=== PATIENT | female | born 1955 | race Caucasian/White ===

== ENCOUNTER 2021-04-01 10:09 | Outpatient (REF) | payer MEDICARE, OTHER, SELFPAY ==
[2021-04-01 11:32] LABS: MANUAL DIFF FLAG NO
[2021-04-01 11:49] LABS: Basophils Percent Auto 0.4 % (0-2); Eosinophils Absolute Auto 0.2 X10*3/uL (0.0-0.4); Eosinophils Percent Auto 3.2 % (0-4); Hematocrit 33.6 % (37-47); Hemoglobin 10.9 g/dl (12.0-16.0); Imm Gran Abs Auto 0.01 X10*3/uL (0.00-0.03); Imm Gran Pct Auto 0.2 % (0.0-0.4); Lymphocytes Absolute Auto 1.9 X10*3/uL (1.2-4.9); Lymphocytes Percent Auto 35.6 % (20-40); Mean Corpuscular HGB Conc 32.4 g/dl (31.0-35.0); Mean Corpuscular Hemoglobin 28.1 pg (27.0-33.0); Mean Corpuscular Volume 86.6 fL (80-98); Mean Platelet Volume 11.9 fL (9.4-12.3); Monocytes Absolute Auto 0.5 X10*3/uL (0.1-1.2); Monocytes Percent Auto 8.6 % (2-11); Neutrophils Absolute Auto 2.7 X10*3/uL (2.0-8.3); Platelet Count 151 X10*3/uL (160-400); Red Blood Count 3.88 X10*6/uL (4.20-5.50); Red Cell Distribution Width 12.7 % (11.0-16.0); White Blood Count 5.3 X10*3/uL (4.8-10.8)
[2021-04-01 11:57] LABS: Alanine Aminotransferase 27 U/L (0-31); Albumin Level 4.1 g/dL (3.5-5.0); Alkaline Phosphatase 79 U/L (39-117); Anion Gap 12 (12-20); Aspartate Amino Transferase 21 U/L (5-31); Bilirubin Total 0.6 mg/dL (0.0-1.0); Blood Urea Nitrogen 20 mg/dL (9-16); Carbon Dioxide 25 mmol/L (22-29); Chloride 107 mmol/L (96-108); Estimated Glomerular Filt Rate > 60; Glucose Fasting 97 mg/dL (60-99); Potassium 4.2 mmol/L (3.3-5.1); Sodium 140 mmol/L (135-145); Total Protein 6.7 g/dL (6.5-8.0)
== END 2021-04-01 10:10 | disposition home or self-care (01) ==
LOC: HO.LAB 10:09
PROVIDERS: PCP Internal Medicine; Visit Provider Nurse Practitioner Psychiatric/Mental Health
DX: F25.9 Schizoaffective disorder, unspecified (principal)
CPT/HCPCS: 36415; 80053; 82947; 85025

== ENCOUNTER → 2021-06-17 10:07 | Outpatient (BNVA) | payer MEDICARE, MEDICAID, SELFPAY | PROVIDERS: PCP Internal Medicine; Visit Provider Obstetrics & Gynecology | DX: N95.0 Postmenopausal bleeding (principal) | CPT/HCPCS: 99212 ==

== ENCOUNTER 2021-08-11 13:07 | Outpatient (REF) | payer MEDICARE, MEDICAID, SELFPAY ==
--- NOTE | ~2021-08-11 | XR_ITS ---
EXAMINATION: XR KNEE, LEFT CLINICAL INFORMATION: Pain COMPARISON: None TECHNIQUE: Four views of the left knee. FINDINGS: Bone alignment is normal. No fracture or dislocation is seen. The joint spaces are normal. There is a small osteophyte at the quadriceps tendon insertion to the patella. There is no joint effusion. XR/XR knee LT 4V IMPRESSION: Small patellar osteophyte at the quadriceps tendon insertion.
== END 2021-08-11 13:08 | disposition home or self-care (01) ==
LOC: HO.XRAY 13:07
PROVIDERS: PCP Internal Medicine; Visit Provider Internal Medicine
DX: M25.562 Pain in left knee (principal)
CPT/HCPCS: 73564

== ENCOUNTER 2022-06-11 14:39 | Outpatient (REF) | payer MEDICARE, MEDICAID, SELFPAY ==
--- NOTE | ~2022-06-11 | MM_ITS ---
EXAMINATION: BONE DENSITOMETRY CLINICAL INDICATION: Asymptomatic menopausal state. COMPARISON: Baseline BD dated 02/24/2019. TECHNIQUE: Using a P2P-Next DXA System (software version: 13.1) manufactured by [employer], dual-energy x-ray absorptiometry was performed of the lumbar spine and left hip. The images are of good technical quality. Summary results are attached. FINDINGS: AP SPINE L1-L4: Current: BMD 1.280 g/cm2, Z-score 1.6, T-score 0.8, normal, 0.9% increase from baseline (<5% change is not significant). Baseline: BMD 1.269 g/cm2. LEFT FEMUR, NECK: Current: BMD 0.943 g/cm2, Z-score 0.4, T-score -0.7, normal. Baseline: BMD 0.951 g/cm2. LEFT FEMUR, TOTAL: Current: BMD 1.022 g/cm2, Z-score 0.9, T-score 0.1, normal, 1.0% decrease from baseline (<5% change is not significant). Baseline: BMD 1.032 g/cm2. IDENTIFIED RISK FACTORS: Menopause. HISTORY OF FRACTURE: None listed. MEDICATIONS: Calcium supplements or multivitamin, vitamin D. MM/XR DEXA axial skeleton IMPRESSION: 1. DIAGNOSIS: Normal bone density based on the lowest T-score value of -0.7 in the femoral neck applying World Health Organization criteria. 2. 10-YEAR FRACTURE RISK PREDICTION, FRAX: According to the guidelines, FRAX calculation should only be performed on patients in the osteopenia bone density category. Therefore, FRAX was not performed on this patient. 3. Treatment Recommendations: NOF guidelines recommend consideration for treatment in postmenopausal women and men age 50 and older presenting with the following: -A hip or vertebral (clinical or morphometric) fracture. -T-score less than or equal to -2.5 at the femoral neck or spine after appropriate evaluation to exclude secondary causes. -Low bone mass at the hip or spine and a 10-year fracture probability by FRAX of greater than or equal to 3% for hip fracture or greater than or equal to 20% for major osteoporotic fracture based on the [place] adapted WHO algorithm. 4. Other Recommendations: All treatment decisions require clinical judgment and consideration of individual patient factors, including patient preferences, comorbidities, previous drug use, risk factors not captured in the FRAX model (e.g. frailty, falls, vitamin D deficiency, increased bone turnover, interval significant decline in bone density) and possible under or overestimation of fracture risk by FRAX. FUTURE SCAN RECOMMENDATION: People with diagnosed cases of osteoporosis or at high risk for fracture should have regular bone mineral density tests. For patients eligible for Medicare, routine testing is allowed once every 2 years. The testing frequency can be increased to one year for patients who have rapidly progressing disease, those who are receiving or discontinuing medical therapy to restore bone mass, or have additional risk factors.
== END 2022-06-11 14:40 | disposition home or self-care (01) ==
LOC: HO.MAMMO 14:39
PROVIDERS: PCP Internal Medicine; Visit Provider Internal Medicine
DX: Z13.820 Encounter for screening for osteoporosis (principal); Z78.0 Asymptomatic menopausal state
CPT/HCPCS: 77080

== ENCOUNTER 2023-12-02 14:18 | Outpatient (REF) | payer MEDICARE, MEDICAID, SELFPAY ==
[2023-12-02 18:25] LABS: Alanine Aminotransferase 29 U/L (0-31); Albumin Level 4.1 g/dL (3.5-5.0); Alkaline Phosphatase 76 U/L (39-117); Anion Gap 11 (12-20); Aspartate Amino Transferase 21 U/L (5-31); Bilirubin Total 0.3 mg/dL (0.0-1.0); Blood Urea Nitrogen 27 mg/dL (9-16); Calcium 9.7 mg/dL (8.4-10.2); Carbon Dioxide 26 mmol/L (22-29); Chloride 106 mmol/L (96-108); Cholesterol 158 mg/dL (<200); Glucose Random 138 mg/dL (60-115); HDL Cholesterol 40 mg/dL (>40); LDL Cholesterol Calculated 81 mg/dL (<100); Potassium 4.1 mmol/L (3.3-5.1); Sodium 139 mmol/L (135-145); Total Protein 6.7 g/dL (6.5-8.0); Triglycerides 186 mg/dL (<150)
[2023-12-02 19:14] LABS: Estimated Glomerular Filt Rate 54
== END 2023-12-02 14:19 | disposition home or self-care (01) ==
LOC: HO.CHCLDS 14:18
PROVIDERS: Visit Provider Internal Medicine
DX: I10 Essential (primary) hypertension (principal)
CPT/HCPCS: 36415; 80053; 80061

== ENCOUNTER 2024-05-18 13:28 | Outpatient (REF) | payer MEDICARE, MEDICAID, SELFPAY ==
--- NOTE | ~2024-05-18 | XR_ITS ---
EXAMINATION: XR CHEST CLINICAL INFORMATION: Right-sided rib/flank pain COMPARISON: Frontal view 07/02/16 TECHNIQUE: 2 views of the chest were obtained. FINDINGS: There is kyphosis and rotation to the right. Some prominence in the region of the main pulmonary outflow. Cardiac size is within normal limits. The central vessels are prominent but distinct. No edema, consolidation, pleural fluid or pneumothorax. There are osteophytes in the spine. XR/XR chest 2V IMPRESSION: 1. No pneumonia or edema. 2. There is some prominence in the region of the main pulmonary outflow. Electronically signed by: Wood Meehan MD 05/21/2024 09:31 PM EDT
== END 2024-05-18 13:29 | disposition home or self-care (01) ==
LOC: HO.HMGCX 13:28
PROVIDERS: PCP Internal Medicine; Visit Provider Internal Medicine
DX: R07.81 Pleurodynia (principal)
CPT/HCPCS: 71046

== ENCOUNTER 2024-12-20 13:45 | Outpatient (REF) | payer MEDICARE, MEDICAID, SELFPAY ==
--- NOTE | ~2024-12-20 | XR_ITS ---
EXAMINATION: XR KNEE, LEFT CLINICAL INFORMATION: knee pain after fall 2 weeks ago COMPARISON: 08/11/2021. TECHNIQUE: Three views of the left knee. FINDINGS: No fracture, dislocation, or suspicious bone lesion. Normal bone mineralization. Normal alignment. Mild tricompartmental joint space narrowing with subtle marginal osteophytic spurs. Minimal spurring of the tibial spines. Tiny superior patellar enthesophyte. No significant joint effusion. Soft tissues appear normal. XR/XR knee LT 3V IMPRESSION: 1. No acute findings left knee. Electronically signed by: Oracio Nunes MD 12/20/2024 04:04 PM EDT
--- NOTE | ~2024-12-20 | XR_ITS ---
EXAMINATION: XR KNEE, RIGHT CLINICAL INFORMATION: knee pain after fall 2 weeks ago COMPARISON: None available. TECHNIQUE: Three views of the right knee. FINDINGS: No fracture, dislocation, or suspicious bone lesion. Normal bone mineralization. Normal alignment. Minimal tricompartmental joint space narrowing. Minimal spurring of the tibial spines. Tiny superior patellar enthesophyte. No significant joint effusion. Soft tissues appear normal. XR/XR knee RT 3V IMPRESSION: 1. No acute findings right knee. Electronically signed by: Oracio Nunes MD 12/20/2024 04:06 PM EDT
== END 2024-12-20 13:46 | disposition home or self-care (01) ==
LOC: HO.HMGCX 13:45
PROVIDERS: PCP Internal Medicine; Visit Provider Internal Medicine
DX: M25.562 Pain in left knee (principal); M25.561 Pain in right knee
CPT/HCPCS: 73562

== ENCOUNTER → 2024-12-20 13:57 | Outpatient (BNV) | payer MEDICARE, MEDICAID, SELFPAY | PROVIDERS: PCP Internal Medicine; Visit Provider Radiology Diagnostic Radiology | DX: M25.562 Pain in left knee (principal); M25.561 Pain in right knee | CPT/HCPCS: 73562 ==

== ENCOUNTER 2025-05-29 18:29 | Outpatient (REF) | payer MEDICARE, MEDICAID, SELFPAY ==
--- OUTSIDE RECORDS SUMMARY | 2025-05-29 13:00 | XMS_ITS | Encounter Summary ---
Author Organization [employer] Address [address] 7 [place] [address] Care Team Providers Care Clay Plant Treater Name Role Phone Anselmo Del Angel MD Primary Care Prov ider Reason for Visit * Reason Comments UTI Encounter Details Date Type Department Care Team ([facility] Contact Info) Description 05/29/2025 1:00 PM EDT Office Visit [facility] PEDS [address] [place] [address] Daylin Rodriguez MD [address] [place] [address] UTI symptoms (Primary Dx) Social History Tobacco Use Types Packs/Day Years Used Date Smoking Tobacco: Never Smokeless Tobacco: Never Alcohol Use Standard Drinks/Week Comments Never 0 (1 standard drink = 0.6 oz pur e alcohol) Depression Answer Date Recorded Patient Health Questionnaire-9 Score 2 12/19/2024 Patient Health Questionnaire-9 Score 2 12/19/2024 Last PHQ-9: Questionnaire Data Not on file 0 12/19/2024 Housing Stability Answer Date Recorded What is your housing situation today? I have marujennifer king 12/19/[address] you li ve. Do you have problems with any of the following? None of the above 12/19/2024 Food Insecurity Answer Date Recorded Within the past 12 months, y ou worried that your food would run out before you got money to buy more: Never True 12/19/2024 Within the past 12 months,th e food you bought just didn't last and you didn't have enough money to get more: Never True Transportation Answer Date Recorded In the past 12 months, has l ack of transportation kept you from medical appts, meetings, work or from getting things needed for daily living? No 12/19/2024 Utilities Answer Date Recorded In the past 12 months, has t he electric, gas, oil or water company threatened to shut off services in your home? No 12/19/2024 Depression Answer Date Recorded Patient Health Questionnaire-2 Score 2 12/19/2024 Internet Access Answer Date Recorded Internet Access Q1 Yes 12/19/2024 Internet Access Q2 Not on file 12/19/2024 Comments Unknown Sex and Gender Information Value Date Recorded Sex Assigned at Female 07/27/2022 10:33 AM EDT Legal Sex Female 10:33 AM EDT Gender Identity Female 07/27/2022 10:33 AM EDT Sexual Orientation Lesbian or Bocanegra 07/27/2022 10 :33 AM EDT documented as of this encounter Last Filed Vital Signs Vital Sign Reading Time Taken Comments Blood Pressure 142/63 05/29/2025 1:05 PM EDT Pulse 58 05/29/2025 1:05 PM EDT Temperature 36.5 C (97.7 F) 05/29/2025 1:05 PM EDT Respiratory Rate 20 05/29/2025 1:05 PM EDT Oxygen Saturation 98% 05/29/2025 1:05 PM EDT Inhaled Oxygen Concentration - - Weight 88.5 kg (195 lb) 05/29/2025 1:05 PM EDT Height 168.9 cm (5' 6.5 ) 05/29/2025 1:05 PM EDT Body Mass Index 31 05/29/2025 1:05 PM EDT documented in this encounter Progress Notes * Daylin Rodriguez MD - 05/29/2025 1:00 PM EDT SUBJECTIVE Sheron Mims is a 69 y.o. female who presents for UTI. UTI This is a new problem. The current episode started today. Associated symptoms include pain. Pertinent negatives include no hematuria. The pain is present in the suprapubic region. Her pain is at a severity of 3/10. Note from Triage reviewed: Triage call to patient who reports onset of urinary pain frequency and incontinence with standing this morning. Patient witout fever blood or pus in toilet. Ms Sheron Mims reports her symptoms started this morning. C/o urinary frequency, mild pelvic pain. No fever. Problem List[1] Allergies[2] Medications Ordered Prior to Encounter[3] Review of Systems Constitutional: Negative for appetite change, chills and diaphoresis. Eyes: Negative for photophobia, pain and redness. Respiratory: Negative for cough and shortness of breath. Genitourinary: Positive for frequency, pelvic pain and urgency. Negative for hematuria. OBJECTIVE Vitals: 05/29/25 1305 BP: (!) 142/63 Pulse: 58 Resp: 20 Temp: 97.7 ??F (36.5 ??C) TempSrc: Oral SpO2: 98% Weight: 195 lb (88.5 kg) Height: 5' 6.5 (1.689 m) Physical Exam Constitutional: General: She is not in acute distress. Appearance: Normal appearance. She is not ill-appearing, toxic-appearing or diaphoretic. Pulmonary: Effort: Pulmonary effort is normal. Abdominal: Palpations: Abdomen is soft. Tenderness: There is abdominal tenderness. Comments: Mild tenderness of the hypogastric area and the left lower quadrant. Neurological: Mental Status: She is alert. Assessment/Plan Assessment/Plan Diagnoses and all orders for this visit: UTI symptoms Comments: Push fluids Macrobid and pyridium as directed Call the office if no improvement in the next 2 days. Ms Sheron Mims is To expect a call w/ the results of the Urine culture. Orders: - Culture, Urine, Routine; Future - nitrofurantoin, macrocrystal-monohydrate, (Macrobid) 100 MG capsule; Take 1 capsule (100 mg) by mouth 2 times daily for 7 days. - phenazopyridine (Pyridium) 100 MG tablet; Take 1 tablet (100 mg) by mouth if needed in the morning, at noon, and at bedtime for bladder spasms for up to 3 days. [1] Patient Active Problem List Diagnosis Primary hypertension Mixed hyperlipidemia Other specified anemias Acute right-sided low back pain without sciatica Screening for colon cancer Rib pain on right side Acute pain of both knees [2] Allergies Allergen Reactions Sulfa Antibiotics Nausea Only and Unknown [3] Current Outpatient Medications on File Prior to Visit Medication Sig Dispense Refill amLODIPine (Norvasc) 5 MG tablet TAKE 1 TABLET BY MOUTH EVERY DAY IN THE MORNING 90 tablet 3 atorvastatin (Lipitor) 20 MG tablet TAKE 1 TABLET BY MOUTH EVERY DAY IN THE MORNING 90 tablet 3 Blood Pressure kit 1 kit Once per day. 1 kit 0 buPROPion XL (Wellbutrin XL) 150 MG 24 hr tablet Take 1 tablet by mouth at bed time. cholecalciferol (Vitamin D-3) 50 MCG (2000 UT) capsule Take by mouth at bed time. cyanocobalamin (Vitamin B-12) 1000 MCG tablet cyclobenzaprine (Flexeril) 5 MG tablet Take 1 tablet (5 mg) by mouth 3 times daily for 10 days. 30 tablet 0 Diclofenac Sodium 1 % gel APPLY 1 APPLICATION TOPICALLY 4 TIMES DAILY. 200 g 2 docusate sodium (Colace) 100 MG capsule Take 1 capsule by mouth every 12 (twelve) hours. escitalopram (Lexapro) 20 MG tablet Take 1 tablet by mouth at bed time. ibuprofen 600 MG tablet Take 1 tablet by mouth in the morning and 1 tablet at noon and 1 tablet in the evening. metFORMIN (Glucophage) 1000 MG tablet Take 1,000 mg by mouth at bedtime. multivitamin with minerals (Cerovite) 18-400 mg-mcg tablet tablet Take by mouth at bed time. cadwnipt-tuocxswwy-vrlrcmhlomgcxg (Cortisporin) 3.5-86704-7 otic suspension instill 4 drop by otic route 3 times every day into affected ear Rexulti 0.5 MG tablet Take 1 tablet by mouth in the morning. Rexulti 2 MG tablet TAKE 1 TABLET BY MOUTH EVERY MORNING WITH 0.5 MG TABLET. terbinafine (LamISIL) 1 % cream Apply between all toes twice daily for 4 weeks or until healed valsartan (Diovan) 320 MG tablet TAKE 1 TABLET BY MOUTH IN THE MORNING 90 tablet 3 No current facility-administered medications on file prior to visit. documented in this encounter Plan of Treatment Upcoming Encounters Date Type Department Care Team (Late st Contact Info) Description 05/30/2025 2:15 PM EDT Telemedicine [facility] MED & PEDS [address] [place] [address] Anselmo Del Angel MD [address] [place] [address] 06/01/2025 9:30 AM EDT Office Visit [facility] AD[facility] D[facility]AL [address] [place] [address] Shakila Dockery, DDS [address] [place] [address] 08/13/2025 2:00 PM EST Office Visit [facility] [address] [place] [address] Ken Rodriguez Scheduled Orders Name Type Priority Associated Diagnoses Orde r Schedule Culture, Urine, Routine Microbiology Routine UTI symptoms Expected: 05/29/2025 (Approximate), Expires: 05/29/2026 documented as of this encounter Procedures Procedure Name Priority Date/Time Associated Diagnosis Comments POCT URINALYSIS DIPSTICK Routine 05/29/2025 4:20 PM EDT UTI symptoms documented in this encounter Results * (ABNORMAL) POCT Urinalysis (05/29/2025 4:20 PM EDT) Color, UA Yellow Clarity, UA Turbid Glucose, UA Negative Bilirubin, UA Negative Ketones, UA Negative Spec Grav, UA 1.030 Blood, UA Positive(A) Negative, None Detected Comment:small pH, UA 7.0 Protein, UA Trace Urobilinogen, UA 0.2 Leukocytes, UA Trace Negative, Rare, Trace Nitrite, UA Negative Negative, None Detected Appearance, UA yellow QC Media Lot # [id number] Lot# Expiration Date , Urine 05/29/2025 4:20 PM EDT Daylin Rodriguez MD POINT OF CARE TEST ENTER/ED IT ORDERABLES Final Result documented in this encounter Visit Diagnoses Diagnosis UTI symptoms- Primary documented in this encounter Additional Health Concerns Assessment Noted Time PHQ-9 Depression Total Score: 2 12/20/19 25 2:14 PM EDT documented as of this encounter Care Teams Clay Plant Treater Relationship Specialty Start Date End Date Anselmo Del Angel MD [address] [place] [address] PCP - General Internal Medicine 02/08/20 documented as of this encounter
--- OUTSIDE RECORDS SUMMARY | 2025-05-29 18:31 | XMS_ITS | Encounter Summary ---
Author Organization [employer] Address [address] [place] [address] [address] [place] [address] Care Team Providers Care Coil Binder Name Role Phone Anselmo Del Angel MD Primary Care Prov ider Encounter Details Date Type Department Care Team (Latest Contact Info) Description 08/07/2019 Abstract [facility] CONVERSIONS Dental, Provider, DDS Social History Tobacco Use Types Packs/Day Years Used Date Smoking Tobacco: Never Assessed Comments Unknown Sex and Gender Information Value Date Recorded Sex Assigned at Female 07/27/2022 10:33 AM EDT Legal Sex Female 10:33 AM EDT Gender Identity Female 07/27/2022 10:33 AM EDT Sexual Orientation Lesbian or Bocanegra 07/27/2022 10 :33 AM EDT documented as of this encounter Plan of Treatment Upcoming Encounters Date Type Department Care Team ( st Contact Info) Description 05/30/2025 2:15 PM EDT Telemedicine [facility] MED & PEDS [address] [place] [address] Anselmo Del Angel MD [address] [place] [address] 06/01/2025 9:30 AM EDT Office Visit [facility] ADULT DENTAL [address] [place] [address] Shakila Dockery DDS [address] [place] [address] 08/13/2025 2:00 PM EST Office Visit [facility] ADULT DENT[facility] [address] [place] [address] Ken Rodriguez documented as of this encounter Visit Diagnoses Not on filedocumented in this encounter Care Teams Coil Binder Relationship Specialty Start Date End Date Anselmo Del Angel MD [address] [place] [id number] PCP - General Internal Medicine 02/08/20 documented as of this encounter
--- OUTSIDE RECORDS SUMMARY | 2025-05-29 18:31 | XMS_ITS | Encounter Summary ---
Author Organization [employer] Address [address] [place] [address] Care Team Providers Care Senior Capital Markets Specialist Name Role Phone Anselmo Del Angel MD Primary Care Prov ider Reason for Visit * Reason Onset Date Comments Nurse Triage 05/29/2025 Encounter Details Date Type Department Care Team ([facility] st Contact Info) Description 05/29/2025 Telephone [facility] [address] [place] [address] Anselmo Del Angel MD [address] [place] [address] Nurse Triage Social History Tobacco Use Types Packs/Day Years [...] is your housing situation today? I have maru sing 12/19/[address] you li [...] AM EDT documented as of this encounter Miscellaneous Notes * Telephone Encounter - Tiffany Alvarez LPN - 05/29/2025 12:04 PM EDT Triage call to patient who reports onset of urinary pain frequency and incontinence with standing this morning. Patient witout fever blood or pus in toilet. Disposition reviewed and patient in agreement with plan. ASK/CHC/SDC/ today at 1pm. Protocol Used: Urination Pain - Female (Adult) Protocol-Based Disposition: See in Office or Video Visit Today Video visit not offered Positive Triage Questions: * Age > 50 years * Painful urination AND EITHER frequency or urgency * All higher-acuity triage questions were negative Care Advice Discussed: * Drink Extra Fluids * Reasons To Call Back - Fever or back pain occurs - You become worse * Telephone Encounter - Zainab Hurd - 05/29/2025 11:23 AM EDT Symptoms: Urine Symptoms, Urination Pain Outcome: Schedule an urgent appointment (within 1 hour) or talk to a nurse or provider soon Reason: Severe pain now The caller accepted this outcome. Contact pt at [phone] documented in this encounter Plan of Treatment Upcoming Encounters Date Type Department Care Team (Late st Contact Info) Description 05/30/2025 2:15 PM EDT Telemedicine [facility] MED & PEDS [address] [place] [address] Anselmo Del Angel MD [address] [place] [address] 06/01/2025 9:30 AM EDT Office Visit [facility] ADULT DENTAL [address] [place] [address] Shakial Dockery DDS [address] [place] [address] 08/13/2025 2:00 PM EST Office Visit [facility] ADULT DENTAL [address] [place] [address] Ken Rodriguez documented as of this encounter Visit Diagnoses Not on filedocumented in this encounter Additional Health Concerns Assessment Noted Time PHQ-9 Depression Total Score: 2 12/20/19 25 2:14 PM EDT documented as of this encounter Care Teams Senior Capital Markets Specialist Relationship Specialty Start Date End Date Anselmo Del Angel MD [address] [place] [address] PCP - General Internal Medicine 02/08/20 documented as of this encounter
--- OUTSIDE RECORDS SUMMARY | 2025-05-29 18:31 | XMS_ITS | Clinical Summary ---
Author Organization [facility] Address [address] [place] [phone] Phone Care Team Providers Care Steel Detailer Name Role Phone Anselmo Del Angel Primary Care Provide r Family History Medical History Relation Name Comments Ovarian cancer Mother's Sister Breast cancer Sister 1 Breast cancer Sister 2 BRCA 1/2 Neg Hx Colon cancer Neg Hx Endometrial cancer Neg Hx Relation Name Status Comments Mother's Sister Sister 1 Sister 2 Social History Tobacco Use Types Packs/Day Years Used Date Smoking Tobacco: Never Assessed Comments Unknown Sex and Gender Information Value Date Recorded Sex Assigned at Not on file Legal Sex Female 1:38 PM EST Gender Identity Not on file Sexual Orientation Not on file Obstetrics History Plan of Treatment Health Maintenance Due Date Last Done Comments DTaP,Tdap,and Td Vaccines (1 - Tdap) 1972 Pneumococcal Vaccine: 50+ Years (1 of 1 - PCV) 2003 Zoster Vaccines (1 of 2) 2003 Colorectal Cancer Screening: Colonoscopy 08/25/2022 Falls Risk Assessment 08/25/2022 Hepatitis C Screening 08/25/2022 Medicare Annual Wellness Visit 08/25/2022 Osteoporosis Screening (Bone Density Screening) 08/25/2022 Social Influencers of Health Screening 08/25/2022 Depression Screening 09/27/2024 COVID-19 Vaccine ( - season) 2025 Influenza Vaccine (#1) 2025 Breast Cancer Screening 08/24/2025 08/24/20 23, 08/11/2022, 08/06/2021, Additional history exists RSV Immunization Adult Patients (1 - 1-dose 75+ series) 2028 HIB Vaccines Aged Out No longer eligi ble based on patient's age to complete this topic HPV Vaccines Aged Out No longer eligi ble based on patient's age to complete this topic Hepatitis A Vaccines Aged Out No long er eligible based on patient's age to complete this topic Hepatitis B Vaccines Aged Out No long er eligible based on patient's age to complete this topic IPV Vaccines Aged Out No longer eligi ble based on patient's age to complete this topic MMR Vaccines Aged Out No longer eligi ble based on patient's age to complete this topic Meningococcal ACWY Vaccine Aged Out N o longer eligible based on patient's age to complete this topic Meningococcal B Vaccine Aged Out No l onger eligible based on patient's age to complete this topic RSV Immunization Patients Under 20 months Aged Out No longer eligible based on patient's age to complete this topic Varicella Vaccines Aged Out No longer eligible based on patient's age to complete this topic Procedures Procedure Name Priority Date/Time Associated Diagnosis Comments MAMMOGRAM SCREENING BILATERAL 3D VENUS WITH CAD Routine 08/24/2023 3:30 PM EST Encounter for screening mammogram for malignant neoplasm of breast from Last 3 Months or Most Recently Relevant to Health Maintenance Results * MAMMOGRAM SCREENING BILATERAL 3D VENUS WITH CAD (08/24/2023 3:30 PM EST) Anatomical Region Laterality Modality Mammography 07/27/2023 12:1 6 PM EDT Narrative 08/27/2023 9:00 AM EST This is a summary report. The complete report is available in the patient's medical record. If you cannot access the medical record, please contact the sending organization for a detailed fax or copy. EXAM PERFORMED: MAMMOGRAM SCREENING BILATERAL 3D VENUS WITH CAD EXAM HISTORY: Screening Exam. No palpable abnormality. COMPARISON: 2021, 2020, 2019, 2015 TECHNIQUE: Bilateral full field digital mammography with synthesized (2D) the and Tomosynthesis (3-D) was performed using standard CC and MLO projections. Mammogram was interpreted in correlation with CAD and Tomosynthesis. BREAST DENSITY: There are scattered fibroglandular densities (approximately 25- 50% glandular, B). FINDINGS: No suspicious masses, grouped microcalcifications, or architectural distortion are identified. Typically benign asymmetries. No axillary lymphadenopathy. IMPRESSION: 1. No mammographic evidence of malignancy 2. Scattered fibroglandular densities BI-RADS Category 2: Benign 3342F RECOMMENDATION: Routine mammography screening. The results of this examination have been communicated to the patient through a lay letter in accordance with the Mammography Quality Standards Act. Report reviewed and signed by : Dr. Mehdi Leiva MD on 08/27/2023 9:00 AM. Workstation Name - [id number] Procedure Note Mehdi Leiva MD - 10/29/2023 This is a summary report. The complete report is available in thepatient's medical record. If you cannot access the medical record, pleasecontact the sending organization for a detailed fax or copy. EXAM PERFORMED: MAMMOGRAM SCREENING BILATERAL 3D VENUS WITH CAD EXAM HISTORY: Screening Exam. No palpable abnormality. COMPARISON: 2021, 2020, 2019, 2015 TECHNIQUE: Bilateral full field digital mammography with synthesized (2D)the and Tomosynthesis (3-D) was performed using standard CC and MLOprojections. Mammogram was interpreted in correlation with CAD andTomosynthesis. BREAST DENSITY: There are scattered fibroglandular densities(approximately 25- 50% glandular, B). FINDINGS: No suspicious masses, grouped microcalcifications, orarchitectural distortion are identified. Typically benign asymmetries. Noaxillary lymphadenopathy. IMPRESSION: 1. No mammographic evidence of malignancy 2. Scattered fibroglandular densities BI-RADS Category 2: Benign 3342F RECOMMENDATION: Routine mammography screening. The results of this examination have been communicated to the patientthrough a lay letter in accordance with the Mammography Quality StandardsAct. Report reviewed and signed by : Dr. Mehdi Leiva MD on 08/27/2023 9:00AM. Workstation Name - [id number] us Anselmo Rodriguez IMG BI PROCEDURES Fin al Result from Last 3 Months or Most Recently Relevant to Health Maintenance Insurance MEDICARE MEDICAID - [place] Care Teams Steel Detailer Relationship Specialty Start Date End Date Anselmo Del Angel [address] [place] [id number] PCP - General Internal Medicine 02/06/25
--- OUTSIDE RECORDS SUMMARY | 2025-05-29 18:31 | XMS_ITS | Encounter Summary ---
Author Organization [employer] Address [address] 7[address] [place] [address] Care Team Providers Care Chain Saw Mechanic Name Role Phone Anselmo Del Angel MD Primary Care Prov ider Encounter Details Date Type Department Care Team (Latest Contact Info) Description 05/29/2025 Travel Social History Tobacco Use Types Packs/Day Years [...] 05/30/2025 2:15 PM EDT Telemedicine [facility] MED & PEDS [address] [place] [address] Anselmo Del Angel MD 505 [place] [address] 06/01/2025 9:30 AM EDT Office Visit [facility] ADULT DENTAL [address] [place] [address] Shakila Dockery, DANE [address] [place] [address] 08/13/2025 2:00 PM EST Office Visit [facility] ADULT DENTAL [address] [place] [address] Ken Rodriguez documented as of this encounter Visit Diagnoses Not on filedocumented in this encounter Additional Health Concerns Assessment Noted Time PHQ-9 Depression Total Score: 2 12/20/19 25 2:14 PM EDT documented as of this encounter Care Teams Chain Saw Mechanic Relationship Specialty Start Date End Date Anselmo Del Angel MD [address] [place] [address] PCP - General Internal Medicine 02/08/20 documented as of this encounter
--- OUTSIDE RECORDS SUMMARY | 2025-05-29 18:31 | XMS_ITS | Encounter Summary ---
Author Organization [employer] Address [address] [place] [address] 7 [place] [address] Care Team Providers Care Travel Freight And Passenger Agent Name Role Phone Anselmo Del Angel MD Primary Care Prov ider Reason for Visit * Reason Onset Date Comments chart prep 05/29/2025 Encounter Details Date Type Department Care Team ([facility] Contact Info) Description 05/29/2025 Telephone [facility] MED & PEDS [address] [place] [address] Anselmo Del Angel MD [address] [place] [address] chart prep Social History Tobacco Use Types Packs/Day Years [...] your housing situation today? I have marujennifer kign 12/19/[address] you li [...] encounter Miscellaneous Notes * Telephone Encounter - Shelia Lema MA - 05/29/2025 9:57 AM EDT Chart Prep Labs: not done Images: done Referrals: appointment pending Vaccines due: Covid, Flu, PCV20, Tdap, and Zoster Screenings: not applicable Overdue care gaps: Not applicable documented in this encounter Plan of Treatment Upcoming Encounters Date Type Department Care Team ([facility] st Contact Info) Description 05/30/2025 2:15 PM EDT Telemedicine [facility] MED & PEDS [address] [place] [address] Anselmo Del Angel MD [address] [place] [address] 06/01/2025 9:30 AM EDT Office Visit [facility] ADULT DENTAL [address] [place] [address] Shakila Dockery DDS [address] [place] [address] 08/13/2025 2:00 PM EST Office Visit [facility] ADULT DENTAL [address] [place] [address] Ken Rodriguez documented as of this encounter Visit Diagnoses Not on filedocumented in this encounter Additional Health Concerns Assessment Noted Time PHQ-9 Depression Total Score: 2 12/20/19 25 2:14 PM EDT documented as of this encounter Care Teams Travel Freight And Passenger Agent Relationship Specialty Start Date End Date Anselmo Del Angel MD [address] [place] [address] PCP - General Internal Medicine 02/08/20 documented as of this encounter
--- OUTSIDE RECORDS SUMMARY | 2025-05-29 18:31 | XMS_ITS | Encounter Summary ---
Author Organization [employer] Address [address] [place] [address] 7t [place] [address] Care Team Providers Care Motor Mechanic Name Role Phone Anselmo Del Angel MD Primary Care Prov ider Encounter Details Date Type Department Care Team (Latest Contact Info) Description 09/04/2021 Abstract [facility] CONVERSIONS Dental, Provider, [...] Description 05/30/2025 2:15 PM EDT Telemedicine [facility] MED & PEDS [address] [place] [address] Anselmo Del Angel MD [address] [place] [address] 06/01/2025 9:30 AM EDT Office Visit [facility] ADULT DENTAL [address] [place] [address] Shakila Dockery DDS [address] [place] [address] 08/13/2025 2:00 PM EST Office Visit [facility] ADULT DENTAL [address] [place] [address] Ken Rodriguez documented as of this encounter Visit Diagnoses Not on filedocumented in this encounter Care Teams Motor Mechanic Relationship Specialty Start Date End Date Anselmo Del Angel MD [address] [place] [id number] PCP - General Internal Medicine 02/08/20 documented as of this encounter
--- OUTSIDE RECORDS SUMMARY | 2025-05-29 18:31 | XMS_ITS | Encounter Summary ---
Author Organization [employer] Address [address] [place] [address] 7t [place] [address] Care Team Providers Care Fire Support Man Name Role Phone Anselmo Del Angel MD Primary Care Prov ider Encounter Details Date Type Department Care Team (Late st Contact Info) Description 02/02/2023 Abstract [facility] MED & PEDS [address] [place] [address] Anselmo Del Angel MD [address] [place] [address] Social History Tobacco Use Types Packs/Day Years Used Date Smoking Tobacco: Never Assessed Depression Answer Date Recorded Patient Health Questionnaire-9 Score 9 01/20/2023 Depression Answer Date Recorded Patient Health Questionnaire-2 Score 6 01/20/2023 Comments Unknown Sex and Gender Information Value Date Recorded Sex Assigned at Female 07/27/2022 10:33 AM EDT Legal Sex Female 10:33 AM EDT Gender Identity Female 07/27/2022 10:33 AM EDT Sexual Orientation Lesbian or Bocanegra 07/27/2022 10 :33 AM EDT COVID-19 Exposure Response Date Recorded In the last 10 days, have yo u been in contact with someone who was confirmed or suspected to have Coronavirus/COVID-19? No / Unsure 01/18/2023 9:51 AM EDT documented as of this encounter Plan of Treatment Upcoming Encounters Date Type Department Care Team (Late st Contact Info) Description 05/30/2025 2:15 PM EDT Telemedicine [facility] MED & PEDS [address] [place] [address] Anselmo Del Angel MD [address] [place] [address] 06/01/2025 9:30 AM EDT Office Visit [facility] ADULT DENTAL [address] [place] [address] Shakila Dockery DDS [address] [place] [address] 08/13/2025 2:00 PM EST Office Visit [facility] ADULT DENTAL [address] [place] [address] Ken Rodriguez documented as of this encounter Visit Diagnoses Not on filedocumented in this encounter Additional Health Concerns Assessment Noted Time PHQ-9 Depression Total Score: 9 01/21/20 23 11:30 AM EDT documented as of this encounter Care Teams Fire Support Man Relationship Specialty Start Date End Date Anselmo Del Angel MD [address] [place] [address] PCP - General Internal Medicine 02/08/20 documented as of this encounter
--- OUTSIDE RECORDS SUMMARY | 2025-05-29 18:31 | XMS_ITS | Encounter Summary ---
Author Organization [employer] Address [address] [facility] 7 [place] [address] Care Team Providers Care Geriatric Physician Name Role Phone Anselmo Del Angel MD Primary Care Prov ider Reason for Visit * Reason Onset Date Comments referral OS 05/01/2025 Encounter Details Date Type Department Care Team ([facility] st Contact Info) Description 05/01/2025 Telephone [facility] ADULT DENTAL [address] [place], [place] [phone] Jacobo Amaya [address] [place] [address] referral OS Social History Tobacco Use Types Packs/Day Years [...] encounter Miscellaneous Notes * Telephone Encounter - Yessenia Medina - 05/01/2025 11:23 AM EDT Patient provided email address she would like referral and xrays sent to . [employer] Enterprisessenmary [email or web address] * Telephone Encounter - Yessenia Medina - 05/01/2025 11:17 AM EDT Patient states that back in October she had received referral for [facility] for OS. Becausehe didn't schedule appt they discarded her information. She is looking for new referral and xray's to be sent to the office. I do not see past referral or release form signed in chart. Sent to both clinical support and medical front desk coordinator documented in this encounter Plan of Treatment Upcoming Encounters Date Type Department Care Team ([facility] st Contact Info) Description 05/30/2025 2:15 PM EDT Telemedicine [facility] MED & PEDS [address] [place], [place] [phone] Anselmo Del Angel MD [address] [place], [place] [phone] 06/01/2025 9:30 AM EDT Office Visit [facility] ADULT DENTAL [address] [place] [address] Shakila Dockery DDS [address] [facility] [place] [address] 08/13/2025 2:00 PM EST Office Visit [facility] ADULT DENTAL [address] [place] [address] Ken Rodriguez documented as of this encounter Visit Diagnoses Not on filedocumented in this encounter Additional Health Concerns Assessment Noted Time PHQ-9 Depression Total Score: 2 12/20/19 25 2:14 PM EDT documented as of this encounter Care Teams Geriatric Physician Relationship Specialty Start Date End Date Anselmo Del Angel MD [address] [place] [address] PCP - General Internal Medicine 02/08/20 documented as of this encounter
--- OUTSIDE RECORDS SUMMARY | 2025-05-29 18:31 | XMS_ITS | Encounter Summary ---
Author Organization [employer] Address [address] [place] [address] Care Team Providers Care Cube Cutter Name Role Phone Anselmo Del Angel MD Primary Care Prov ider Encounter Details Date Type Department Care Team (Late st Contact Info) Description 11/29/2023 Telephone [facility] ADULT DENTAL [address] [place], [place] [phone] Velma Hernandez, EULA Social History Tobacco Use Types Packs/Day Years Used Date Smoking Tobacco: Never Smokeless Tobacco: Never Alcohol Use Standard Drinks/Week Comments Never 0 (1 standard drink = 0.6 oz pur e alcohol) Depression Answer Date Recorded Patient Health Questionnaire-9 Score 0 10/04/2023 Patient Health Questionnaire-9 Score 0 10/04/2023 Last PHQ-9: Questionnaire Data Not on file 0 10/04/2023 Housing Stability Answer Date Recorded What is your housing situation today? I have maru king 07/23/[address] you li ve. Do you have problems with any of the following? None of the above 07/23/2023 Food Insecurity Answer Date Recorded Within the past 12 months, y ou worried that your food would run out before you got money to buy more: Never True 07/23/2023 Within the past 12 months,th e food you bought just didn't last and you didn't have enough money to get more: Never True Transportation Answer Date Recorded In the past 12 months, has l ack of transportation kept you from medical appts, meetings, work or from getting things needed for daily living? No 07/23/2023 Utilities Answer Date Recorded In the past 12 months, has t he electric, gas, oil or water company threatened to shut off services in your home? No 07/23/2023 Depression Answer Date Recorded Patient Health Questionnaire-2 Score 0 10/04/2023 Comments Unknown Sex and Gender Information Value Date Recorded Sex Assigned at Female 07/27/2022 10:33 AM EDT Legal Sex Female 10:33 AM EDT Gender Identity Female 07/27/2022 10:33 AM EDT Sexual Orientation Lesbian or Bocanegra 07/27/2022 10 :33 AM EDT documented as of this encounter Miscellaneous Notes * Telephone Encounter - Sommer Yoder - 11/29/2023 1:32 PM EST Patient is asking for a call back from dr velma Medina concerning implants documented in this encounter Plan of Treatment Upcoming Encounters Date Type Department Care Team (Late st Contact Info) Description 05/30/2025 2:15 PM EDT Telemedicine [facility] MED & PEDS [address] [place] [address] Anselmo Del Angel MD [address] [place] [address] 06/01/2025 9:30 AM EDT Office Visit [facility] ADULT DENTAL [address] [place] [address] Shakila Dockery DDS [address] [place], [place] [phone] 08/13/2025 2:00 PM EST Office Visit [facility] ADULT DENTAL [address] [place] [address] Ken Rodriguez documented as of this encounter Visit Diagnoses Not on filedocumented in this encounter Additional Health Concerns Assessment Noted Time PHQ-9 Depression Total Score: 0 10/04/19 24 3:35 PM EST documented as of this encounter Care Teams Cube Cutter Relationship Specialty Start Date End Date Anselmo Del Angel MD [address] [place] [address] PCP - General Internal Medicine 02/08/20 documented as of this encounter
--- OUTSIDE RECORDS SUMMARY | 2025-05-29 18:31 | XMS_ITS | Encounter Summary ---
Author Organization [employer] Address [address] [place] [address] 7t [place] [address] Care Team Providers Care Sheet Metal Layout Mechanic Name Role Phone Anselmo Del Angel MD Primary Care Prov ider Encounter Details Date Type Department Care Team (Late st Contact Info) Description 09/01/2022 Abstract [facility] ADULT DENTAL [address] [place] [address] Dental, Provider, DDS Social History Tobacco Use [...] 05/30/2025 2:15 PM EDT Telemedicine [facility] MED & PEDS [address] [place] [address] Anselmo Del Angel MD [address] [place] [address] 06/01/2025 9:30 AM EDT Office Visit [facility] ADULT DENTAL [address] [place] [address] Shakila Dockery DDS [address] [place] [address] 08/13/2025 2:00 PM EST Office Visit [facility] ADULT DENTAL [address] [place] [address] Ken Rodriguez documented as of this encounter Visit Diagnoses Not on filedocumented in this encounter Care Teams Sheet Metal Layout Mechanic Relationship Specialty Start Date End Date Anselmo Del Angel MD [address] [place] [address] PCP - General Internal Medicine 02/08/20 documented as of this encounter
--- OUTSIDE RECORDS SUMMARY | 2025-05-29 18:32 | XMS_ITS | Encounter Summary ---
Author Organization [employer] Address [address] [facility] 7t [place] [address] Care Team Providers Care Contact Finger Assembler Name Role Phone Anselmo Del Angel MD Primary Care Prov ider Reason for Visit * Reason Onset Date Comments Nurse Triage 12/15/2023 Encounter Details Date Type Department Care Team ([facility] st Contact Info) Description 12/15/2023 Telephone [facility] MEDICINE [address] [place] [address] Anselmo Del Angel MD [address] [facility] [address] [place] [address] Nurse Triage Social History Tobacco Use Types [...] enough money to get more: Never True 10/ Transportation Answer Date Recorded In the past [...] encounter Miscellaneous Notes * Telephone Encounter - Heaven Beltran RN - 12/15/2023 2:34 PM EDT Triage call Pt reports continued diarrhea x2 today , neg for mucous, blood. Pt was triaged 12/10/23 , see triage note, and had an appt for this problem 12/13/23 but canceled because Pt thought it was resolving. Pt had been taking immodium which helped to stop the diarrhea. Pt reports diarrhea for 7 days now intermittently when ever not taking immodium. Pt does report abdominal pain until stool is passed then pain resolves. Neg for fever, nausea, vomiting. Eating as usual, voiding as usual. Pt is drinking gatorade and adequate liquids. Pt is offered to come to [facility] today but, declines, asks if apt in [facility] available on Wednesday. Apt with Dr. Rodriguez 12/20/23 @ 1115am. Insurance is verified as active prior to booking. Protocol Used: Diarrhea (Adult) Protocol-Based Disposition: See in Office or Video Visit within 3 Days Override (Final) Disposition: See in Office or Video Visit within 2 Weeks Override Reason: No appointments available Video visit not offered Positive Triage Questions: * Mild diarrhea (e.g., 1-3 or more stools than normal in past 24 hours) diarrhea without known cause and present > 7 days * Patient wants to be seen * All higher-acuity triage questions were negative Care Advice Discussed: * Reassurance and Education - Diarrhea * Fluid Therapy During Mild to Moderate Diarrhea * Food and Nutrition During Mild to Moderate Diarrhea * Wash Your Hands * Expected Course * Reasons To Call Back - Signs of dehydration occur (e.g., no urine over 12 hours, very dry mouth, lightheaded, etc.) - Moderate diarrhea lasts more than 2 days - Diarrhea lasts over 7 days - You become worse * Telephone Encounter - Herbert Lema - 12/15/2023 2:04 PM EDT Symptom: Diarrhea Outcome: Schedule an appointment to be seen within 24 hours Reason: Caller denied all higher acuity questions The caller accepted this outcome documented in this encounter Plan of Treatment Upcoming Encounters Date Type Department Care Team (Late st Contact Info) Description 05/30/2025 2:15 PM EDT Telemedicine [facility] MED & PEDS [address] [place] [address] Anselmo Del Angel MD [address] [place] [address] 06/01/2025 9:30 AM EDT Office Visit [facility] ADULT DENTAL [address] [place] [address] Shakila Dockery DDS [address] [place], [place] [phone] 08/13/2025 2:00 PM EST Office Visit [facility] ADULT DENTAL [address] [place] [address] Ken Rodriguez documented as of this encounter Visit Diagnoses Not on filedocumented in this encounter Additional Health Concerns Assessment Noted Time PHQ-9 Depression Total Score: 0 10/04/19 24 3:35 PM EST documented as of this encounter Care Teams Contact Finger Assembler Relationship Specialty Start Date End Date Anselmo Del Angel MD [address] [place] [address] PCP - General Internal Medicine 02/08/20 documented as of this encounter
--- OUTSIDE RECORDS SUMMARY | 2025-05-29 18:32 | XMS_ITS | Encounter Summary ---
Author Organization [employer] Address [address] [facility] [address] [address] 7t [place] [address] Care Team Providers Care Commuter Pilot Name Role Phone Anselmo Del Angel MD Primary Care Prov ider Reason for Visit * Reason Onset Date Comments referral 12/14/2023 Encounter Details Date Type Department Care Team (Late st Contact Info) Description 12/14/2023 Telephone [facility] ADULT DENTAL [address] [place] [address] Velma Hernandez, EULA referral Social History Tobacco Use Types Packs/Day Years [...] * Telephone Encounter - Yessenia Medina - 12/14/2023 10:04 AM EDT Patient is requesting for referral to be sent to [facility]. She had an extraction done with Dr. Oscar Medina and is now looking for implant but unable to set up appt without referral. She does not have the fax number for referral to be sent. She would like to see if it can be sent to the office DR documented in this encounter Plan of Treatment Upcoming Encounters Date Type Department Care Team (Late st Contact Info) Description 05/30/2025 2:15 PM EDT Telemedicine [facility] MED & PEDS [address] [place] [address] Anselmo Del Angel MD [address] [place] [address] 06/01/2025 9:30 AM EDT Office Visit [facility] ADULT DENTAL [address] [place] [address] Shakila Dockery DDS [address] [place] [address] 08/13/2025 2:00 PM EST Office Visit [facility] ADULT DENTAL [address] [place] [address] Ken Rodriguez documented as of this encounter Visit Diagnoses Not on filedocumented in this encounter Additional Health Concerns Assessment Noted Time PHQ-9 Depression Total Score: 0 10/04/19 24 3:35 PM EST documented as of this encounter Care Teams Commuter Pilot Relationship Specialty Start Date End Date Anselmo Del Angel MD [address] [place] [address] PCP - General Internal Medicine 02/08/20 documented as of this encounter
--- OUTSIDE RECORDS SUMMARY | 2025-05-29 18:32 | XMS_ITS | Encounter Summary ---
Author Organization [employer] Address [address] [facility] 7t [place] [address] Care Team Providers Care Clerical Adjuster Name Role Phone Anselmo Del Angel MD Primary Care Prov ider Reason for Visit * Reason Onset Date Comments Results 12/07/2023 Encounter Details Date Type Department Care Team ([facility] st Contact Info) Description 12/07/2023 Telephone [facility] MEDICINE [address] [place] [address] Anselmo Del Angel MD [address] [place] [address] Results Social History Tobacco Use Types Packs/Day Years [...] encounter Miscellaneous Notes * Telephone Encounter - Wing Sherry RN - 12/07/2023 4:09 PM EDT Tc to pt regarding lab concerns. Unable to reach pt. Left message for pt to call back. * Telephone Encounter - Jelena Villarreal - 12/07/2023 3:08 PM EDT Tc from pt requesting a call in regards to some results that are in. Pt has some concerns and questions. Please contact pt @ [phone] documented in this encounter Plan of Treatment Upcoming Encounters Date Type Department Care Team (Late st Contact Info) Description 05/30/2025 2:15 PM EDT Telemedicine [facility] MED & PEDS [address] [place] [address] Anselmo Del Angel MD [address] [place], [place] [phone] 06/01/2025 9:30 AM EDT Office Visit [facility] ADULT DENTAL [address] [place], [place] [phone] Shakila Dockery DDS [address] [place] [address] 08/13/2025 2:00 PM EST Office Visit [facility] ADULT [facility] [address] [place] [address] Ken Rodriguez documented as of this encounter Visit Diagnoses Not on filedocumented in this encounter Additional Health Concerns Assessment Noted Time PHQ-9 Depression Total Score: 0 10/04/19 24 3:35 PM EST documented as of this encounter Care Teams Clerical Adjuster Relationship Specialty Start Date End Date Anselmo Del Angel MD [address] [place] [address] PCP - General Internal Medicine 02/08/20 documented as of this encounter
--- OUTSIDE RECORDS SUMMARY | 2025-05-29 18:32 | XMS_ITS | Encounter Summary ---
Author Organization [employer] Address 75 [facility] 7t [place] [address] Care Team Providers Care Braiding Operator Name Role Phone Anselmo Del Angel MD Primary Care Prov ider Encounter Details Date Type Department Care Team ([facility] st Contact Info) Description 05/16/[address] [facility] MED & PEDS [address] [place], [place] [phone] Anselmo Del Angel MD [address] [place] [address] Social History Tobacco Use Types Packs/Day Years [...] 05/30/2025 2:15 PM EDT Telemedicine [facility] MED & PEDS [address] [place] [address] Anselmo Del Angel MD [address] [place] [address] 06/01/2025 9:30 AM EDT Office Visit [facility] ADULT DENTAL [address] [place] [address] Shakila Dockery DDS [address] [place] [address] 08/13/2025 2:00 PM EST Office Visit [facility] ADULT DENTAL [address] [place] [address] Ken Rodriguez documented as of this encounter Visit Diagnoses Not on filedocumented in this encounter Additional Health Concerns Assessment Noted Time PHQ-9 Depression Total Score: 0 10/04/19 24 3:35 PM EST documented as of this encounter Care Teams Braiding Operator Relationship Specialty Start Date End Date Anselmo Del Angel MD [address] [place] [address] PCP - General Internal Medicine 02/08/20 documented as of this encounter
--- OUTSIDE RECORDS SUMMARY | 2025-05-29 18:32 | XMS_ITS | Encounter Summary ---
Author Organization [employer] Address 75 [facility] 7t [place] [address] Care Team Providers Care Learning Support Aide Name Role Phone Anselmo Del Angel MD Primary Care Prov ider Encounter Details Date Type Department Care Team ([facility] st Contact Info) Description 12/03/2023 Orders Only [facility] MED & PEDS [address] [place], [place] [phone] Anselmo Del Angel MD [address] [place] [address] Social History Tobacco Use Types Packs/Day Years [...] Info) Description 05/30/2025 2:15 PM EDT Telemedicine [facility] MED & PEDS [address] [place] [address] Anselmo Del Angel MD [address] [place] [address] 06/01/2025 9:30 AM EDT Office Visit [facility] ADULT DENTAL [address] [place] [address] Shakila Dockery DDS [address] [place] [address] 08/13/2025 2:00 PM EST Office Visit [facility] ADULT DENTAL [address] [place] [address] Ken Rodriguez documented as of this encounter Visit Diagnoses Not on filedocumented in this encounter Additional Health Concerns Assessment Noted Time PHQ-9 Depression Total Score: 0 10/04/19 24 3:35 PM EST documented as of this encounter Care Teams Learning Support Aide Relationship Specialty Start Date End Date Anselmo Del Angel MD [address] [place] [address] PCP - General Internal Medicine 02/08/20 documented as of this encounter
--- OUTSIDE RECORDS SUMMARY | 2025-05-29 18:32 | XMS_ITS | Clinical Summary ---
Author Organization [employer] Address 75 [facility] 7t [place] [address] Care Team Providers Care Assistant Professor Of Music Name Role Phone Anselmo Del Angel MD Primary Care Prov ider Allergies Active Allergy Reactions Criticality Noted Date Comments Sulfa Antibiotics Nausea Only,Unknown 8 Medications multivitamin with minerals (Cerovite) 18-400 mg-mcg tablet tablet Take by mouth at bed time. 9 Active cyanocobalamin (Vitamin B-12) 1000 MCG tablet Acti ve docusate sodium (Colace) 100 MG capsule Take 1 capsule by mouth every 12 (twelve) hours. 1 Active escitalopram (Lexapro) 20 MG tablet Take 1 tablet by mouth at bed time. Active buPROPion XL (Wellbutrin XL) 150 MG 24 hr tablet Take 1 tablet by mouth at bed time. Active cholecalciferol (Vitamin D-3) 50 MCG (2000 UT) capsule Take by mouth at bed time. 2 Active terbinafine (LamISIL) 1 % cream Apply between all toes twice daily for 4 weeks or until healed 2 Active ibuprofen 600 MG tablet Take 1 tablet by mouth in the morning and 1 tablet at noon and 1 tablet in the evening. 1 Active neomycin-polymy willard-hydrocortis one (Cortisporin) 3.5-43814-9 otic suspension instill 4 drop by otic route 3 times every day into affected ear 9 Active metFORMIN (Glucophage) 1000 MG tablet Take 1,000 mg by mouth at bedtime. 3 Active Rexulti 0.5 MG tablet Take 1 tablet by mouth in the morning. 3 Active Rexulti 2 MG tablet TAKE 1 TABLET BY MOUTH EVERY MORNING WITH 0.5 MG TABLET. 3 Active Diclofenac Sodium 1 % gel APPLY 1 APPLICATION TOPICALLY 4 TIMES DAILY. 200 g 2 4 Active Blood Pressure kit 1 kit Once per day. 1 kit 4 Active amLODIPine (Norvasc) 5 MG tablet TAKE 1 TABLET BY MOUTH EVERY DAY IN THE MORNING 90 tablet 3 4 Active valsartan (Diovan) 320 MG tablet TAKE 1 TABLET BY MOUTH IN THE MORNING 90 tablet 3 4 Active atorvastatin (Lipitor) 20 MG tablet TAKE 1 TABLET BY MOUTH EVERY DAY IN THE MORNING 90 tablet 3 4 Active cyclobenzaprine (Flexeril) 5 MG tabletIndicatio ns:Muscle spasm Take 1 tablet (5 mg) by mouth 3 times daily for 10 days. 30 tablet 5 Active nitrofurantoin, macrocrystal-mo nohydrate, (Macrobid) 100 MG capsuleIndicati ons:UTI symptoms Take 1 capsule (100 mg) by mouth 2 times daily for 7 days. 14 capsule 5 06/05/20 25 Active phenazopyridine (Pyridium) 100 MG tabletIndicatio ns:UTI symptoms Take 1 tablet (100 mg) by mouth if needed in the morning, at noon, and at bedtime for bladder spasms for up to 3 days. 6 tablet 5 06/01/20 25 Active Active Problems Problem Noted Date Diagnosed Date Acute pain of both knees 12/19/2024 Assessment & Plan (12/19/2024 2:38 PM EDT): Patient fell from her feet 2 weeks ago, complains of pain, mild swelling, not warm or skin color changes, will send xrays, told to rest, apply ice, take tylenol as needed, follow up of no improvement in 1 week Rib pain on right side 05/16/2024 Screening for colon cancer 10/04/2023 Assessment & Plan (10/04/2023 6:09 PM EST): Cologuard done on 02/2023 with negative results due in 3 years Acute right-sided low back pain without sciatica 05/20/2023 Assessment & Plan (08/04/2023 6:23 PM EST): Pain resolved, continue daily stretching exercises, no neurologic deficit Assessment & Plan (05/20/2023 11:53 AM EDT): Patient with sharp back pain with paraspinal spasms upon examination. Will send tylenol 500 mg and topical diclofenac. Advised patient to take muscle relaxer nightly. Will send for xray to be done if symptoms persist. Other specified anemias 01/20/2023 Assessment & Plan (01/20/2023 2:03 PM EDT): Will order iron +b12 to evaluate causes for her anemia, denied rectal/vaginal bleeding Primary hypertension 10/30/2022 Assessment & Plan (05/16/2024 3:06 PM EDT): Patient not monitoring her blood pressure, refers her machine broke, will send a new one, denied chest pain/shortness of breath Assessment & Plan (04/13/2024 7:06 AM EDT): Controlled, keep low sodium diet, keep bp log, target <130/80 Assessment & Plan (10/04/2023 6:10 PM EST): Controlled, will leave on amlodipine and valsartan, no changes will be made, bp target <140/90, follow up in 3 months Assessment & Plan (09/08/2023 2:48 PM EST): Not controlled, will add amlodipine 5 mg, reinforced low sodium diet, keep bp log and will follow up in 1 month Assessment & Plan (08/04/2023 6:23 PM EST): Not at target, will dc hydrochlorothiazide and will increase valsartan, told to keep a bp log, will follow up in 1 month Assessment & Plan (01/20/2023 2:04 PM EDT): Controlled, reinforced low sodium diet, continue current medications, reviewed labs with patient. Assessment & Plan (10/30/2022 12:42 PM EST): Controlled, reinforced low sodium diet and exercise as tolerated, will order new labs for guidance of therapy Mixed hyperlipidemia 10/30/2022 Assessment & Plan (05/16/2024 3:07 PM EDT): On atorvastatin 20mg, no changes will be made, keep low cholesterol diet, follow up in 3-4 months Assessment & Plan (04/13/2024 7:08 AM EDT): Controlled, continue atorvastatin, keep low fat diet Assessment & Plan (10/30/2022 12:43 PM EST): On statin therapy, will order new labs for guidance of therapy Encounters Date Type Department Care Team Description 05/29/2025 1:00 PM EDT Office Visit [facility] MED & PEDS [address] [place] [address] Daylin Rodriguez MD UTI symptoms (Primary Dx) 05/29/2025 Travel 05/29/2025 Telephone [facility] MEDICINE [address] [place] [address] Anselmo Del Angel MD Nurse Triage 05/29/2025 Telephone [facility] MED & PEDS [address] [place] [address] Anselmo Del Angel MD chart prep 05/01/2025 Telephone [facility] ADULT DENTAL [address] [place] [address] Jacobo Amaya referral OS 03/07/2025 Travel from Last 3 Months Social History Tobacco Use Types Packs/Day Years Used Date Smoking Tobacco: Never Smokeless Tobacco: Never Tobacco Cessation:Counseling Given: Not Answered Alcohol Use Standard Drinks/Week Comments Never 0 (1 standard drink = 0.6 oz pur e alcohol) Depression Answer Date Recorded Patient Health Questionnaire-9 Score 2 12/19/2024 Patient Health Questionnaire-9 Score 2 12/19/2024 Last PHQ-9: Questionnaire Data Not on file 0 12/19/2024 Housing Stability Answer Date Recorded What is your housing situation today? I have maru king 12/19/[address] you [...] or [place] 07/27/2022 10 :33 AM EDT Last Filed Vital Signs Vital Sign Reading [...] Mass Index 31 05/29/2025 1:05 PM EDT Plan of Treatment Upcoming Encounters Date Type Department Care Team (Late st Contact Info) Description 05/30/2025 2:15 PM EDT Telemedicine [facility] MED & PEDS [address] [place] [address] Anselmo Del Angel MD [address] [place] [address] 06/01/2025 9:30 AM EDT Office Visit [facility] ADULT DENTAL [address] [place], [place] [phone] Shakila Dockery DDS [address] [facility] [place], [place] [phone] 08/13/2025 2:00 PM EST Office Visit [facility] ADULT DENTAL [address] [place] [address] Ken Rodriguez Health Maintenance Due Date Last Done Comments CT Colonography 1953 Colonoscopy 1953 FIT 1953 FOBT 1953 Sigmoidoscopy 1953 DTaP/Tdap/Td Vaccines (1 - Tdap) 1972 Zoster Vaccines (1 of 2) 2003 Pneumococcal Vaccine: 50+ Years (2 of 2 - PPSV23) 11/24/2020 11/24/2019 Dental Oral Exam 07/13/2024 01/11/2024, 05/2021, 09/05/2019, Additional history exists COVID-19 Vaccine ( season) 2025 08/26/2023, 07/06/2022, 01/25/2022, Additional history exists Influenza Vaccine (#1) 2025 , 07/05/2021, 07/14/2019, Additional history exists Dental Prophylaxis 08/12/2025 02/08/2025, 0 01/11/2024, 09/04/2021, Additional history exists Mammogram 08/27/2025 08/27/2023, 05/28, 01/20/2018, Additional history exists Alcohol/Substance Use Screening 12/19/2025 12/19/2024 Depression Screening 12/19/2025 12/19/2024, 12/20/19 SDOH Screening 12/19/2025 12/19/2024 Dental X-Ray: Bitewings 02/09/2026 02/09/20, 01/11/2024, 09/17/2023, Additional history exists Colorectal Cancer Screening 03/18/2026 FIT DNA/Cologuard 03/18/2026 Tobacco Screening 05/29/2026 05/29/2025 Dental X-Ray: Full Mouth 01/11/2027 01/11/2024, 10/2017 RSV Patients and Patients Aged 60 years or older (1 - 1-dose 75+ series) 2028 Lipid Panel 12/01/2028 12/02/2023, 12/27, 01/16/2022 Hepatitis C Screening Completed 01/18/2023 HIB Vaccines Aged Out No longer eligi [...] patient's age to complete this topic Meningococcal Vaccine Aged Out No rubén zafar eligible based on patient's age to complete this topic RSV under 20 months Aged Out No longe r eligible based on patient's age to complete this topic Rotavirus Vaccines Aged Out No longer eligible based on patient's age to complete this topic Procedures Procedure Name Priority Date/Time Associated Diagnosis Comments POCT URINALYSIS DIPSTICK Routine 05/29/2025 4:20 PM EDT UTI symptoms PROPHYLAXIS - ADULT Routine 02/08/2025 1 :00 PM EDT BITEWINGS - 4 RADIOGRAPHIC IMAGES Routine 02/08/2025 1:00 PM EDT INTRAORAL - COMPLETE SERIES OF RADIOGRAPHIC IMAGES Routine 01/11/2024 2:00 PM EDT PERIODIC ORAL EVALUATION - ESTABLISHED PATIENT Routine 01/11/2024 2:00 PM EDT LIPID PANEL, STANDARD Routine 12/02/2023 2:20 PM EST Primary hypertension HM MAMMOGRAPHY Routine 08/27/2023 5:09 PM EST HEPATITIS C AB W/REFL TO HCV RNA, QN, PCR Routine 01/18/2023 10:52 AM EDT Primary hypertension from Last 3 Months or Most Recently Relevant to Health Maintenance Results * (ABNORMAL) POCT Urinalysis (05/29/2025 4:20 [...] Media Lot # [id number] Lot# Expiration Date Urine 05/29/2025 4:20 PM EDT Daylin Rodriguez MD POINT OF CARE TEST ENTER/ED IT ORDERABLES Final Result * (ABNORMAL) Lipid Panel, Standard (12/02/2023 2:20 PM EST) Triglycerides 186(H) <150 mg/dL [facility] Comment:Desirable Triglyceri de: less than 150 mg/dLBorderline High Triglyceride 150-199 mg/dLHigh Triglyceride: 200-499 mg/dLVery High Triglyceride: greater than or equal to 5OO mg/dL Cholesterol 158 <200 mg/dL [facility] Comment:Desirable Cholestero l: less than 200 mg/dLBorderline High Cholesterol: 200-239 mg/dLHigh Cholesterol: greater than 239 mg/dL LDL Cholesterol Calculated 81 <100 mg/dL [facility] Comment:Desirable LDL: less than 100 mg/dLNear Optimal/Above Optimal LDL: 110- 129 mg/dLBorderline High LDL: 130-159 mg/dLHigh LDL: 160-189 mg/dLVery High LDL: greater than or equal to 190 mg/dL HDL Cholesterol 40(L) >40 mg/dL [facility] Comment:Desirable HDL: great er than 40 mg/dL Note: This HDL assay may give artificially low results in patients with liver disease. Blood Venous blood specimen / Unknown 12/02/2023 2:20 PM EST 12/02/2023 5:22 PM EST Anselmo Rodriguez MD LAB BLOOD ORDERABL ES Final Result [facility] [address] [place] [address] [phone] * Hm Mammography (08/27/2023 5:09 PM EST) Anatomical Region Laterality Modality Other India Douglas MD HEALTH MAINTENANCE Final Result * Hepatitis C Antibody with Reflex to HCV, RNA, Quantitative, Real-Time PCR (01/18/2023 10:52 AM EDT) Hepatitis C Antibody NON-REACT ERAN NON-REACT ERAN [facility] Index 0.08 <1.00 [facility] Comment: HCV antibody was non-reactive. There is no laboratory evidence of HCV infection. In most cases, no further action is required. However, if recent HCV exposure is suspected, a test for HCV RNA (test code 75914) is suggested. For additional information please refer to http://education.Vello App.FindProz/faq/XQZ49t6 (This link is being provided for informational/ educational purposes only.) Blood Venous blood specimen / Unknown 01/18/2023 10:52 AM EDT 01/18/2023 10:53 AM EDT Narrative [facility] - 01/19/2023 4:24 AM EDT FASTING:NO FASTING: NO Anselmo Rodriguez MD LAB BLOOD ORDERABL ES Final Result [address], [place] [address] [facility] [address] [place] [phone] from Last 3 Months or Most Recently Relevant to Health Maintenance Insurance [facility] STANDARD Care Teams Assistant Professor Of Music Relationship Specialty Start Date End Date Anselmo Del Angel MD [address] [place] [address] [place] [address] PCP - General Internal Medicine 02/08/20
--- OUTSIDE RECORDS SUMMARY | 2025-05-29 18:32 | XMS_ITS | Clinical Summary ---
Author Organization [employer] [facility] Address [address] [place] [address] Care Team Providers Care Education Instructor Name Role Phone Angely Shepard MD Primary Care Provider Allergies Active Allergy Reactions Criticality Noted Date Comments Sulfa Antibiotics 09/23/2016 Family History Medical History Relation Name Comments Ovarian cancer Maternal Aunt Breast cancer Sister 1 Breast cancer Sister 2 BRCA 1/2 Neg Hx Colon cancer Neg Hx Endometrial cancer Neg Hx Relation Name Status Comments Maternal Aunt Sister 1 Sister 2 Social History Tobacco Use Types Packs/Day Years Used Date Smoking Tobacco: Never Assessed Sex and Gender Information Value Date Recorded Sex Assigned at Not on file Gender Identity Not on file Sexual Orientation Not on file Job Start Date Occupation Industry Not on file Not on file Not on file Plan of Treatment Health Maintenance Due Date Last Done Comments Hepatitis C Screening 1955 COVID-19 Vaccine (#1) 01[birth year]09/1956 Depression Screening 1965 Preventative Health Evaluation 1971 DTap / Tdap / Td (1 - Tdap) 1972 Colon Cancer Screening (Colonoscopy) 1998 Shingrix-Zoster Vaccine (1 of 2) 2003 Fall Risk Assessment 2018 Osteoporosis Screening (DEXA Scan) 2018 Pneumococcal Vaccine (1 of 1 - PCV) 2018 Influenza Vaccine (#1) 2025 Breast Cancer Screening (Mammogram) 08/24/2025 08/24/2023, 08/11/2022, 08/06/2021, Additional history exists RSV Adult > 60+ Yrs or (1 - 1-dose 75+ series) 2028 Hepatitis B Vaccines Aged Out No long er eligible based on patient's age to complete this topic RSV Ped < 20 months Aged Out No longe r eligible based on patient's age to complete this topic Care Teams Education Instructor Relationship Specialty Start Date End Date Angely Shepard MD PCP - General Family Medicine 09/05/15
--- OUTSIDE RECORDS SUMMARY | 2025-05-29 18:32 | XMS_ITS | Encounter Summary ---
Author Organization [employer] Address [address] [facility] 7t [place] [address] Care Team Providers Care Machine Clerical Verifier Name Role Phone Anselmo Del Angel MD Primary Care Prov ider Reason for Visit * Reason Onset Date Comments Durable Medical Equipment 05/02/2024 Encounter Details Date Type Department Care Team ([facility] st Contact Info) Description 05/02/2024 Telephone [facility] MEDICINE [address] [place] [address] Anselmo Del Angel MD [address] [facility] [place] [address] Durable Medical Equipment Social History Tobacco Use Types Packs/Day Years [...] housing situation today? I have marujennifer king 07/23/[address] you [...] encounter Miscellaneous Notes * Telephone Encounter - Herbert Lema - 05/02/2024 2:31 PM EDT Tc from patient calling to request a new script for a glucose monitor states the previous one is not working documented in this encounter Plan of Treatment Upcoming Encounters Date Type Department Care Team (Late st Contact Info) Description 05/30/2025 2:15 PM EDT Telemedicine [facility] MED & PEDS [address] [place] [address] Anselmo Del Angel MD [address] [place] [address] 06/01/2025 9:30 AM EDT Office Visit [facility] ADULT DENTAL [address] [place] [address] Shakila Dockery DDS [address] [place] [address] 08/13/2025 2:00 PM EST Office Visit [facility] ADULT DENTAL [address] [place] [address] Ken Rodriguez documented as of this encounter Visit Diagnoses Not on filedocumented in this encounter Additional Health Concerns Assessment Noted Time PHQ-9 Depression Total Score: 0 10/04/19 24 3:35 PM EST documented as of this encounter Care Teams Machine Clerical Verifier Relationship Specialty Start Date End Date Anselmo Del Angel MD [address] [place] [address] PCP - General Internal Medicine 02/08/20 documented as of this encounter
--- OUTSIDE RECORDS SUMMARY | 2025-05-29 18:32 | XMS_ITS | Encounter Summary ---
Author Organization [employer] Address [address] [place] [address] Care Team Providers Care Floorman Name Role Phone Anselmo Del Angel MD Primary Care Prov ider Encounter Details Date Type Department Care Team (Late st Contact Info) Description 09/17/2024 Orders Only [facility] [address] [place], [place] [phone] ProviderIndia MD Social History Tobacco Use Types Packs/Day Years [...] [facility] [address] [place], [place] [phone] Anselmo Del Angel MD [address] [place] [address] 06/01/2025 9:30 AM EDT Office Visit [facility] [address] [place], [place] [phone] Shakila Dockery DDS [address] [facility] [place], [place] [phone] 08/13/2025 2:00 PM EST Office Visit [facility] [address] [place], [place] [phone] Ken Rodriguez documented as of this encounter Procedures Procedure Name Priority Date/Time Associated Diagnosis Comments HM MAMMOGRAPHY Routine 08/27/2023 5:09 PM EST documented in this encounter Results * Hm Mammography (08/27/2023 5:09 PM EST) Anatomical Region Laterality Modality Other us Historical Provider HEALTH MAINTENANCE Final Result documented in this encounter Visit Diagnoses Not on filedocumented in this encounter Additional Health Concerns Assessment Noted Time PHQ-9 Depression Total Score: 0 10/04/19 24 3:35 PM EST documented as of this encounter Care Teams Floorman Relationship Specialty Start Date End Date Anselmo Del Angel MD [address] [place] [address] PCP - General Internal Medicine 02/08/20 documented as of this encounter
== END 2025-05-29 18:30 | disposition home or self-care (01) ==
LOC: HO.HHCLNP 18:29
PROVIDERS: Visit Provider Internal Medicine
DX: R39.9 Unspecified symptoms and signs involving the genitourinary system (principal)
CPT/HCPCS: 87086

== ENCOUNTER 2025-09-13 10:44 | Outpatient (REF) | payer MEDICARE, MEDICAID, SELFPAY ==
[2025-09-13 15:06] LABS: MANUAL DIFF FLAG NO
[2025-09-13 15:21] LABS: Hematocrit 33.1 % (37.0-47.0); Hemoglobin 10.4 g/dl (12.0-16.0); Imm Gran Abs Auto 0.01 X10*3/uL (0.00-0.03); Imm Gran Pct Auto 0.2 % (0.0-0.4); Lymphocytes Absolute Auto 1.6 X10*3/uL (1.2-4.9); Mean Corpuscular HGB Conc 31.4 g/dl (31.0-35.0); Mean Corpuscular Hemoglobin 27.6 pg (27.0-33.0); Mean Corpuscular Volume 87.8 fL (80.0-98.0); NRBC Abs Auto 0.000 X10*3/uL (0.0-0.012); NRBC Pct Auto 0.0 /100WBC (0.0-0.2); Platelet Count 231 X10*3/uL (160-400); Red Blood Count 3.77 X10*6/uL (4.20-5.50); White Blood Count 4.5 X10*3/uL (4.8-10.8)
[2025-09-13 16:11] LABS: Alanine Aminotransferase 34 U/L (0-31); Albumin Level 4.5 g/dL (3.5-5.0); Alkaline Phosphatase 74 U/L (39-117); Anion Gap 12 (12-20); Aspartate Amino Transferase 37 U/L (5-31); Blood Urea Nitrogen 31 mg/dL (9-16); Calcium 9.9 mg/dL (8.4-10.2); Carbon Dioxide 24 mmol/L (22-29); Chloride 109 mmol/L (96-108); Cholesterol 192 mg/dL (<200); Estimated Glomerular Filt Rate 49; HDL Cholesterol 61 mg/dL (>40); Potassium 4.2 mmol/L (3.3-5.1); Sodium 141 mmol/L (135-145); Total Protein 6.9 g/dL (6.5-8.0); Triglycerides 106 mg/dL (<150)
== END 2025-09-13 10:45 | disposition home or self-care (01) ==
LOC: HO.CHCLDS 10:44
PROVIDERS: Visit Provider Internal Medicine
DX: E78.2 Mixed hyperlipidemia (principal)
CPT/HCPCS: 36415; 80053; 80061; 84443; 85025